=== PATIENT | female | born 1940 | race Caucasian/White ===

== ENCOUNTER → 2016-12-07 | Outpatient (CLI) | payer BC ==
[2016-12-07 12:20] LABS: BASO % 0.6 %; BASO ABS # 0.05 K/uL (0-0.2); COMPLETE YES; EOS % 4.2 %; HEMATOCRIT 37.1 % (37-47); IG% 0.1 %; LYMPH % 34.5 %; LYMPH ABS # 3.07 K/uL (1.2-3.4); MEAN CELL VOLUME 83.7 fL (80-100); MEAN CORPUSCULAR HEMOGLOBIN 27.1 pg (25-34); MEAN CORPUSCULAR HGB CONC 32.3 g/dl (32-36); MONO % 8.4 %; NEUT % 52.2 %; PLATELET COUNT 407 K/uL (130-400); RED BLOOD COUNT 4.43 M/uL (4.2-5.4); WHITE BLOOD COUNT 8.89 K/uL (4.8-10.8)
[2016-12-07 12:48] LABS: ALT/SGPT 22 U/L (12-78); AST/SGOT 15 U/L (15-37); BLOOD UREA NITROGEN 18 mg/dl (7-18); BUN/CREATININE RATIO 20.4 (10-20); CALCIUM 8.8 mg/dl (8.5-10.1); CARBON DIOXIDE 30 mmol/L (21-32); CHLORIDE 104 mmol/L (98-107); CHOLESTEROL 186 mg/dl (0-200); CREATININE 0.89 mg/dl (0.60-1.20); GLUCOSE 114 mg/dl (70-99); POTASSIUM 3.9 mmol/L (3.5-5.1); SODIUM 140 mmol/L (136-145)
[2016-12-07 12:59] LABS: ALB/GLOB RATIO 1.1 (0.9-2); ALKALINE PHOSPHATASE 109 U/L (45-117); CHOLESTEROL/HDL RATIO 2.5; HDL CHOLESTEROL 74 mg/dl; LDL CHOLESTEROL CALCULATED 77 mg/dl; TRIGLYCERIDES 175 mg/dl (0-150); VERY LOW DENSITY LIPOPROT CALC 35 mg/dl
[2016-12-07 13:01] LABS: ESTIMATED AVERAGE GLUCOSE 126 mg/dl; HA1C FLAG Normal (Normal)
== END | disposition home or self-care (01) ==
LOC: C.LABPVFM 08:33
PROVIDERS: ATTEND Family Medicine
DX: F32.9 Major depressive disorder, single episode, unspecified (principal); E78.5 Hyperlipidemia, unspecified; R60.9 Edema, unspecified; R73.9 Hyperglycemia, unspecified

== ENCOUNTER → 2016-12-10 | Outpatient (CLI) | payer BC ==
--- NOTE | 2016-12-14 13:57 | CODING QUERY MEDICAL NECESSITY ---
SUPPORTING DIAGNOSIS NEEDED A supporting diagnosis is required for the test/procedure performed on this patient in order for us to be reimbursed by the patient's insurance. Please provide a supporting diagnosis for the following test/procedure listed below next to the test name along with your signature. *If there is no additional diagnosis for this patient that would support the following test/procedure please document that below next to the test/procedure. Test(s)/Procedure(s) that require a supporting diagnosis: * VITAMIN D 25-HYDROXY DIAGNOSIS: * DOS: 12/10/16 Provider Signature: Date: Thank you Sulema To [facility] Information Management Once completed, please kindly fax back to [phone] For questions please call [phone]
== END | disposition home or self-care (01) ==
LOC: C.LABPVFM 11:21
PROVIDERS: ATTEND Nurse Practitioner
DX: G62.9 Polyneuropathy, unspecified (principal); E55.9 Vitamin D deficiency, unspecified

== ENCOUNTER → 2017-02-01 | Outpatient (CLI) | payer BC ==
--- NOTE | 2017-02-02 07:56 | MAMMOGRAPHY REPORT ---
BILATERAL DIGITAL DIAGNOSTIC MAMMOGRAM TOMOSYNTHESIS WITH CAD: 02/01/2017 CLINICAL HISTORY: Close follow-up of clusters of microcalcifications within the left breast. Also a nnual bilateral screening mammogram. TECHNIQUE: Bilateral CC and MLO 2-D digital and tomosynthesis images, spot magnification left CC an d ML views were obtained. Current study was also evaluated with a Computer Aided Detection (CAD) sy stem. COMPARISON: Comparison is made to exams dated: 08/03/2016 mammogram, 01/29/2016 ultrasound, 6 mammogram, 01/20/2016 mammogram, 01/16/2015 mammogram, and 01/12/2014 mammogram - [facility]. BREAST COMPOSITION: The tissue of both breasts is heterogeneously dense, which may obscure small ma sses. FINDINGS: The breast parenchymal pattern is similar to prior mammograms. There are benign rim calci fications scattered bilaterally. No obvious new mass, focal area of architectural distortion or new microcalcifications are identified. Spot magnification views of the left breast demonstrate approx imately 4 clusters of microcalcifications in both the medial and lateral aspect of the breast. Thes e clusters of microcalcifications are unchanged dating back to the 01/29/2016 mammograms. They also appear similar on prior full-field views dating back to 01/10/2013 and are most likely benign. The clusters of microcalcifications in the medial posterior left breast, best seen on the CC view are i ncreasingly conspicuous compared to the 2013 exam. Therefore, another 12 month follow-up diagnostic mammogram including left spot magnification views is recommended to ensure longer stability. IMPRESSION: ACR-BI-RADS CATEGORY 3: PROBABLY BENIGN Stable bilateral mammograms, including multiple clusters of microcalcifications within the medial an d lateral left breast. Another 12 month follow-up diagnostic mammogram including spot magnification views to reassess the microcalcifications is recommended. Annual right mammography will be due at that time. These results and recommendations were discussed with the patient at the time of the exam. Approximately 10% of breast cancers are not detected with mammography. A negative mammographic repor t should not delay biopsy if a clinically suggestive mass is present. Divine Mireles M.D. ay/:02/01/2017 16:05:35 Freight Loading Supervisor: Cathy WETZEL(Tata)(Maite), [facility] letter sent: Follow Up Recommended 3 BI-RADS Code: ACR-BI-RADS Category 3: Probably Benign
== END | disposition home or self-care (01) ==
LOC: C.MAMM 09:05
PROVIDERS: ATTEND Nurse Practitioner
DX: R92.0 Mammographic microcalcification found on diagnostic imaging of breast (principal)

== ENCOUNTER 2025-04-24 09:47 | Observation (INO) ==
[2025-04-24] MEDS: OPTIRAY 320 125ml IV ONE (10:16)
--- NOTE | 2025-04-24 10:23 | CT Scan Report ---
CT head/brain wo con CLINICAL HISTORY: 84 years-old Female with Neuro deficit, acute, stroke suspected. Acute strokelike symptoms TECHNIQUE: Multiple axial CT images of the head were obtained without contrast. A dose lowering tech nique was utilized adhering to the principles of ALARA. CT DOSE: 547.75 mGy.cm COMPARISON: CTA head of same day, head CT September 15, 2022 FINDINGS: No acute intracranial hemorrhage, midline shift, intracranial mass, hydrocephalus, territorial ischem ia or abnormal extra-axial collection. Involutional changes with white matter hypodensities suggestiv e of chronic microvascular ischemic disease. The calvarium is intact. The paranasal sinuses, mastoid air cells, and middle ear cavities are clear . IMPRESSION: No acute intracranial abnormality. ACT 112: Negative or not required by law. The above report was generated using voice recognition software. It may contain grammatical, syntax o r spelling errors. Electronically signed by: Paul Frank M.D. 04/24/2025 10:21 AM
--- NOTE | 2025-04-24 10:28 | CT Scan Report ---
CT angio neck with con CLINICAL HISTORY: 84 years-old Female with neuro deficit, acute stroke suspected. Acute stroke lik e symptoms COMPARISON STUDY: CTA head of same day TECHNIQUE: Following the IV administration of 120 mL of Optiray, CT angiogram of the neck was perform ed from the aortic arch to the skull base. Images are reviewed in the axial, sagittal, and coronal pl anes. 3-D MIPS images are created and assessed. IV contrast was administered without complication. Al l measurements were calculated based on NASCET criteria. A dose lowering technique was utilized adhe ring to the principles of ALARA. CT DOSE: 383.76 mGy.cm FINDINGS: Three-vessel morphology of the thoracic arch. The common carotid arteries are patent. There is atherosclerosis of the carotid bulbs with patent internal carotid arteries. Patent and codominant vertebral arteries. No aneurysm, dissection, high-grade stenosis or arterial occlusion. Patent basil ar artery. Lung apices are clear. No pneumothorax. Unremarkable soft tissues. Degenerative changes of the cervic al spine. No acute fracture. IMPRESSION:Unremarkable CTA of the neck. ACT 112: Negative or not required by law. The above report was generated using voice recognition software. It may contain grammatical, syntax o r spelling errors. Electronically signed by: Paul Frank M.D. 04/24/2025 10:26 AM
--- NOTE | 2025-04-24 10:30 | CT Scan Report ---
CT angio head w con CLINICAL HISTORY: neuro deficit, acute stroke suspected. TECHNIQUE: Unenhanced axial CT scan of the brain is performed. Subsequently, following the IV adminis tration of 120 cc of Optiray, CT angiogram of the brain was performed from the skull base to the vert ex. Images are reviewed in the axial, sagittal, and coronal planes. 3-D MIPS images are created and a ssessed. IV contrast was administered without complication. All measurements were obtained according to NASCET criteria. A dose lowering technique was utilized adhering to the principles of ALARA. CT DOSE: 384 COMPARISON STUDY: 09/15/2022 FINDINGS: Distal internal carotid and vertebral arteries show no significant narrowing or occlusion. Basilar artery is widely patent. Anterior, middle, and posterior cerebral arteries are patent bilater ally. Cerebral venous sinuses opacify normally. No intracranial aneurysm seen. IMPRESSION: No significant arterial narrowing or occlusion seen at the brain. ACT 112: Negative or not required by law. The above report was generated using voice recognition software. It may contain grammatical, syntax o r spelling errors. Electronically signed by: Linden Marrero M.D. 04/24/2025 10:29 AM
[2025-04-24 10:50] LABS: Hematocrit (blood only) 36.2 % (37.0-47.0); Hemoglobin 12.1 g/dl (12.0-16.0); Mean Corpuscular Hemoglobin 30.9 pg (25.0-34.0); Mean Corpuscular Volume 92.3 fL (80.0-100.0); Platelet Count 257 K/uL (130-400); RDW Standard Deviation 45.1 fL (36.4-46.3); Red Blood Count 3.92 M/uL (4.20-5.40); White Blood Count 4.75 K/ul (4.8-10.8)
--- NOTE | 2025-04-24 10:52 | Emergency Department Note ---
History of Present Illness General Chief complaint: Stroke/CVA Symptoms Stated complaint: LEFT SIDE NUMB, FALL LAST WEEK-HIT HEAD TWICE Time Seen by Provider: 04/24/25 10:07 Source: patient and family History of Present Illness Maximum Pain Intensity: 0 Patient is an 84-year-old female who presents with left arm and facial numbness that started around 830 this morning. She states "it just feels different on the left side". LLE weakness reported. Denies any visual changes or speech changes. She did state that she had trouble lifting her leg out of the car this morning. Family does report that she fell last Wednesday and struck her head. She does have some bruising to the scalp and around the left eye. She took 81mg of Aspirin earlier today. Home Medications Medication Instructions Recorded Confirmed Type vit C 250 mg-vit E 90 mg-zinc 40 1 tab PO BID 05/26/18 12/12/24 History mg-copper 1 [id number] capsule (PreserVision AREDS-2) timolol 0.25 % eye drops 1 drp ophthalmic (eye) DAILY #5 mL 05/13/21 12/12/24 Rx aspirin 81 mg tablet,delayed 81 mg PO DAILY 09/15/22 12/12/24 History release diphenhydramine 25 1 tab PO .COMPLEX 04/13/23 12/12/24 History mg-acetaminophen 500 mg tablet (Tylenol PM Extra Strength) venlafaxine 75 mg capsule,extended 75 mg PO DAILY #100 caps 03/27/24 12/12/24 Rx release 24 hr clonidine HCl 0.1 mg tablet 0.1 mg PO DAILY #100 tabs 05/01/24 12/12/24 Rx pantoprazole 40 mg tablet,delayed 40 mg PO DAILY #90 tabs 05/17/24 12/12/24 Rx release spironolactone 25 1 tab PO QAM #90 tabs 06/16/24 12/12/24 Rx mg-hydrochlorothiazide 25 mg tablet simvastatin 20 mg tablet 20 mg PO QAM #90 tabs 11/14/24 12/12/24 Rx cholecalciferol (vitamin D3) 25 25 mcg PO DAILY 12/12/24 12/12/24 History mcg (1,000 unit) capsule ipratropium bromide 21 mcg (0.03 2 spray intranasal BID #30 mL 12/15/24 Rx %) nasal spray Allergies Allergy/AdvReac Type Severity Reaction Status Date / Time No Known Allergies Allergy Verified 12/12/24 12:55 Past Med/Surg History Problem List (Updated 04/24/25 @ 11:25 by Wenceslao Portillo MD) Transient cerebral ischemia (Acute) Long-term current use of proton pump inhibitor therapy Pre-diabetes Chronic reflux esophagitis (Chronic) Depression (Chronic) Dyslipidemia (Chronic) Edema extremities (Chronic) Menopausal symptoms (Chronic) SCC (squamous cell carcinoma) (Chronic) Vitamin D deficiency (Chronic) Medical History Neck pain Fall History of anesthesia reaction GERD (gastroesophageal reflux disease) Migraine Hyperlipidemia Surgical History H/O hemorrhoidectomy History of total abdominal hysterectomy and bilateral salpingo-oophorectomy History of colonoscopy History of cholecystectomy History of tooth extraction H/O bilateral cataract extraction Family History Aunt Breast cancer Sister Myocardial infarction Father Cancer Heart disease Denies family history of Ovarian cancer Colorectal cancer Social History Smoking Status: Never smoker Second Hand Exposure: Yes (, FATHER SMOKED); Do You Dip or Chew Tobacco: No; Hx Alcohol Use: Yes Alcohol type: wine Alcohol Intake Frequency: Monthly or Less Hx Substance Use: No Preferred Language: Czech Communication Ability: Effective Visual Impairment: Limited Hearing Ability: Normal Sand Control Worker Required: No Beliefs That Will Affect Care: None marital status: / Current Living Situation: Alone current occupational status: retired How many Children do You have: 2 Feels Safe at Home: Yes Childhood Exposure to Second-Hand Smoke: Yes Diet: regular caffeine: Yes during the past year weight has: remained stable Dental Care, Regularly: Yes Physical Activity Frequency: Does not Exercise Seatbelt Use: never Sunscreen Use: Yes Do you think of yourself as: straight/heterosexual Sexual Activity: has been sexually active, but not for at least 12 months Gender Identity: Female Assistive Devices: Denture - Lower and Glasses Review of Systems Review of systems negative outside of positive findings mentioned in HPI. Physical Exam Vital Signs Vital Signs - 24 hr 04/24/25 09:53 04/24/25 10:22 04/24/25 10:34 Temperature 36.5 C Temperature Source Oral Pulse Rate 76 85 86 Pulse Rate [Apical] Respiratory Rate 20 18 Respiratory Effort / Characteristics Non-Labored Spontaneous Respiratory Depth Normal Respiratory Pattern Regular Blood Pressure 128/76 166/86 H Blood Pressure [Right Arm] Blood Pressure Mean 93 107 Blood Pressure Mean [Right Arm] Pulse Oximetry 98 100 Oxygen Delivery Method Room Air Sepsis Recent Fever Within 48 Hours No Sepsis New/Unexplained Change in Mental Status N/A Sepsis Action Taken by Nursing No Action Required 04/24/25 10:48 04/24/25 10:50 04/24/25 11:00 Temperature Temperature Source Pulse Rate 75 Pulse Rate [Apical] 68 Respiratory Rate 19 16 Respiratory Effort / Characteristics Non-Labored Spontaneous Respiratory Depth Respiratory Pattern Blood Pressure 160/82 H Blood Pressure [Right Arm] 154/76 H Blood Pressure Mean 108 Blood Pressure Mean [Right Arm] 102 Pulse Oximetry 98 98 96 Oxygen Delivery Method Room Air Room Air Sepsis Recent Fever Within 48 Hours Sepsis New/Unexplained Change in Mental Status Sepsis Action Taken by Nursing 04/24/25 11:08 Temperature Temperature Source Pulse Rate Pulse Rate [Apical] 68 Respiratory Rate 16 Respiratory Effort / Characteristics Non-Labored Spontaneous Respiratory Depth Respiratory Pattern Blood Pressure Blood Pressure [Right Arm] 154/76 H Blood Pressure Mean Blood Pressure Mean [Right Arm] 102 Pulse Oximetry 96 Oxygen Delivery Method Room Air Sepsis Recent Fever Within 48 Hours Sepsis New/Unexplained Change in Mental Status Sepsis Action Taken by Nursing See below. Constitutional WD/WN, vitals as above Eyes PERRL, conjunctivae normal, anicteric sclerae Respiratory normal respiratory effort, lungs clear to auscultation Cardiovascular RRR, no murmur, no edema Gastrointestinal (Abdomen) normal bowel sounds, soft, nontender, no hepatosplenomegaly Musculoskeletal no cyanosis or clubbing, extremities motor strength 5/5 Neurologic Cranial nerves II through XII are intact, no visual field deficits noted on compositional testing, 5 out of 5 strength in the upper and lower extremities, no dysmetria noted in all 4 limbs, normal speech, light touch sensation deficit noted in LUE and left side of face, NIHSS of 1 Course Administered Medications Discontinued Medications Aspirin (Aspirin Chew 324 Mg) 324 mg PO NOW STA Stop: 04/24/25 10:41 Last Admin: 04/24/25 10:56 Dose: 243 mg Documented By: JONATHAN Clopidogrel Bisulfate (Clopidogrel Bisulfate 300 Mg Tab) 300 mg PO NOW STA Stop: 04/24/25 10:41 Last Admin: 04/24/25 10:56 Dose: 300 mg Documented By: JONATHAN Ioversol (Optiray 320 125ml) 120 ml IV ONCE ONE Stop: 04/24/25 10:16 Last Admin: 04/24/25 10:16 Dose: 120 ml Documented By: MONA Medical Decision Making Differential Diagnosis TIA, CVA, SAH, SDH, atypical migraine Medical Records Attestation: I reviewed the patient's medical records. Home Medications Current Medication List: was personally reviewed by me Laboratory Data Attestation: I reviewed the patient's lab results. 04/24/25 10:22 04/24/25 10:22 Lab Results 04/24/25 04/24/25 Range/Units 10:22 10:33 WBC 4.75 L (4.8-10.8) K/ul RBC 3.92 L (4.20-5.40) M/uL Hgb 12.1 (12.0-16.0) g/dl POC Hgb 11.9 L (12.0-16.0) g/dl Hct 36.2 L (37.0-47.0) % POC Hct 35 L (37-47) % MCV 92.3 (80.0-100.0) fL MCH 30.9 (25.0-34.0) pg MCHC 33.4 (32.0-36.0) g/dL RDW Std Deviation 45.1 (36.4-46.3) fL RDW Coeff of Mallory 13.3 (11.5-14.5) % Plt Count 257 (130-400) K/uL MPV 9.5 (9.4-12.4) fL PT 10.7 (9.0-12.0) Seconds INR 1.0 (0.9-1.1) APTT 28 (21-31) Seconds PTT Ratio 1.0 POC Sodium 135 (135-144) mmol/L Sodium 134 L (136-145) mmol/L POC Potassium 3.6 (3.3-5.0) mmol/L Potassium 3.6 (3.5-5.1) mmol/L POC Chloride 97 L (101-112) mmol/L Chloride 99 (98-107) mmol/L Carbon Dioxide 29 (21-32) mmol/L POC Total CO2 26 (24-31) mmol/L Anion Gap 6 (3-11) POC Anion Gap 17.0 (16-25) mmol/L POC BUN 17 (7-18) mg/dl BUN 17 (6-23) mg/dl Creatinine 0.60 (0.6-1.2) mg/dl POC Creatinine 0.7 (0.6-1.3) mg/dl Est Cr Clr Drug Dosing Not Reportable eGFR 87.91 BUN/Creatinine Ratio 28.3 H (10-20) Glucose 139 H (70-99(Fasting)) mg/dl POC Glucose (other) 130 H (70-99) mg/dl Calcium 8.5 L (8.6-10.3) mg/dl POC Ioniz Calcium Fabiana 1.10 L (1.12-1.32) mmol/l Magnesium 1.6 L (1.7-2.4) mg/dl Total Bilirubin 0.4 (0.2-1.0) mg/dl AST 15 (13-39) U/L ALT 11 (7-52) U/L Alkaline Phosphatase 87 (34-104) U/L Troponin I High Sens 4.0 (0-14) pg/ml Total Protein 5.7 L (6.0-8.3) gm/dl Albumin 3.3 L (3.4-5.0) gm/dl Globulin 2.4 L (2.5-4.0) gm/dl Albumin/Globulin Ratio 1.4 (0.9-2) Blood Type O Negative Antibody Screen NEGATIVE Imaging Data Radiologist's Impression: Head CT 04/24/25 10:06 CT head/brain wo con CLINICAL HISTORY: 84 years-old Female with Neuro deficit, acute, stroke suspected. Acute strokelike symptoms TECHNIQUE: Multiple axial CT images of the head were obtained without contrast. A dose lowering technique was utilized adhering to the principles of ALARA. CT DOSE: 547.75 mGy.cm COMPARISON: CTA head of same day, head CT September 15, 2022 FINDINGS: No acute intracranial hemorrhage, midline shift, intracranial mass, hydrocephalus, territorial ischemia or abnormal extra-axial collection. Involutional changes with white matter hypodensities suggestive of chronic microvascular ischemic disease. The calvarium is intact. The paranasal sinuses, mastoid air cells, and middle ear cavities are clear. IMPRESSION: No acute intracranial abnormality. ACT 112: Negative or not required by law. The above report was generated using voice recognition software. It may contain grammatical, syntax or spelling errors. Electronically signed by: Paul Frank M.D. 04/24/2025 10:21 AM Head CTA 04/24/25 10:08 CT angio head w con CLINICAL HISTORY: neuro deficit, acute stroke suspected. TECHNIQUE: Unenhanced axial CT scan of the brain is performed. Subsequently, following the IV administration of 120 cc of Optiray, CT angiogram of the brain was performed from the skull base to the vertex. Images are reviewed in the axial, sagittal, and coronal planes. 3-D MIPS images are created and assessed. IV contrast was administered without complication. All measurements were obtained according to NASCET criteria. A dose lowering technique was utilized adhering to the principles of ALARA. CT DOSE: 384 COMPARISON STUDY: 09/15/2022 FINDINGS: Distal internal carotid and vertebral arteries show no significant narrowing or occlusion. Basilar artery is widely patent. Anterior, middle, and posterior cerebral arteries are patent bilaterally. Cerebral venous sinuses opacify normally. No intracranial aneurysm seen. IMPRESSION: No significant arterial narrowing or occlusion seen at the brain. ACT 112: Negative or not required by law. The above report was generated using voice recognition software. It may contain grammatical, syntax or spelling errors. Electronically signed by: Linden Marrero M.D. 04/24/2025 10:29 AM Neck CTA 04/24/25 10:08 CT angio neck with con CLINICAL HISTORY: 84 years-old Female with neuro deficit, acute stroke suspected. Acute stroke like symptoms COMPARISON STUDY: CTA head of same day TECHNIQUE: Following the IV administration of 120 mL of Optiray, CT angiogram of the neck was performed from the aortic arch to the skull base. Images are reviewed in the axial, sagittal, and coronal planes. 3-D MIPS images are created and assessed. IV contrast was administered without complication. All measurements were calculated based on NASCET criteria. A dose lowering technique was utilized adhering to the principles of ALARA. CT DOSE: 383.76 mGy.cm FINDINGS: Three-vessel morphology of the thoracic arch. The common carotid arteries are patent. There is atherosclerosis of the carotid bulbs with patent internal carotid arteries. Patent and codominant vertebral arteries. No aneurysm, dissection, high-grade stenosis or arterial occlusion. Patent basilar artery. Lung apices are clear. No pneumothorax. Unremarkable soft tissues. Degenerative changes of the cervical spine. No acute fracture. IMPRESSION:Unremarkable CTA of the neck. ACT 112: Negative or not required by law. The above report was generated using voice recognition software. It may contain grammatical, syntax or spelling errors. Electronically signed by: Paul Frank M.D. 04/24/2025 10:26 AM ECG Data Attestation: I personally reviewed and interpreted this ECG as follows: Indication: + weakness Rate (beats per minute): 71 Rhythm: + normal sinus ECG Intervals/blocks: + Normal QRS, + Normal QT and + Normal VT ECG [place]: + Normal ECG ST segments: + Normal ST segments Comparison ECG Date: from (09/15/2022) Change: no significant change Blood Pressure Blood Pressure Findings: Elevated blood pressure MDM Narrative Patient is an 84-year-old female presents as a stroke alert. Complains of left- sided numbness that started around 830 this morning. Initially went to CT prior to my evaluation. My evaluation patient does have some subjective numbness on the left upper extremity and left face. Overall NIH stroke scale of 1. I discussed the case with Dr. Bey with teleneurology who states that because of the improving non-debilitating symptoms there is no indication for thrombolytics at this time. No LVO noted on CTA. She recommends admission for stroke workup including MRI, echocardiogram as well as dual antiplatelet therapy. I did recommend the aspirin and Plavix here in the ED. Permissive hypertension recommended as well. Will admit to hospitalist service for CVA workup. Impression & Plan Transient cerebral ischemia Discharge Plan Visit Data Chief Complaint: Stroke/CVA Symptoms Stated Complaint: LEFT SIDE NUMB, FALL LAST WEEK-HIT HEAD TWICE ED Provider: Wenceslao Portillo Discharge Problem: Transient cerebral ischemia Patient Disposition: Admitted As Inpatient Condition: Good Forms Stand Alone Forms: My [employer] Prescriptions Prescriptions: No Action timolol 0.25 % drops 1 drp ophthalmic (eye) DAILY Qty: 5 2RF venlafaxine 75 mg capsule,extended release 24hr 75 mg PO DAILY Qty: 100 3RF clonidine HCl 0.1 mg tablet 0.1 mg PO DAILY Qty: 100 3RF pantoprazole 40 mg tablet,delayed release (DR/EC) 40 mg PO DAILY Qty: 90 3RF spironolacton-hydrochlorothiaz 25-25 mg tablet 1 tab PO QAM Qty: 90 3RF simvastatin 20 mg tablet 20 mg PO QAM Qty: 90 3RF ipratropium bromide 21 mcg (0.03 %) spray,non-aerosol 2 spray intranasal BID Qty: 30 3RF Rx Instructions: administer into each nostril diphenhydramine-acetaminophen [Tylenol PM Extra Strength] 25-500 mg tablet 1 tab PO .COMPLEX Rx Instructions: 1 tab orally Before Bedtime; cholecalciferol (vitamin D3) 25 mcg (1,000 unit) capsule 25 mcg PO DAILY PreserVision AREDS-2 [id number] Capsule 1 tab PO BID aspirin [Aspirin Low-Strength] 81 mg Tablet,Delayed Release (Dr/Ec) 81 mg PO DAILY Referrals Referrals: Kaitlynn Martinez CRNP [Primary Care Provider] -
[2025-04-24] MEDS: CLOPIDOGREL BISULFATE 300 MG TAB PO STA (10:56)
[2025-04-24] MEDS: ASPIRIN CHEW 324 MG PO STA (10:56)
[2025-04-24 11:03] LABS: Alanine Aminotransferase 11 U/L (7-52); Albumin Globulin Ratio 1.4 (0.9-2); Alkaline Phosphatase 87 U/L (34-104); Anion Gap 6 (3-11); Bilirubin,Total 0.4 mg/dl (0.2-1.0); Blood Urea Nitrogen 17 mg/dl (6-23); Calcium 8.5 mg/dl (8.6-10.3); Carbon Dioxide 29 mmol/L (21-32); Chloride 99 mmol/L (98-107); Globulin 2.4 gm/dl (2.5-4.0); Glucose 139 mg/dl (70-99(Fasting)); Magnesium 1.6 mg/dl (1.7-2.4); Potassium 3.6 mmol/L (3.5-5.1); Sodium 134 mmol/L (136-145); Total Protein 5.7 gm/dl (6.0-8.3)
[2025-04-24 11:12] LABS: INR 1.0 (0.9-1.1); Partial Thromboplastin Time 28 Seconds (21-31); Prothrombin Time 10.7 Seconds (9.0-12.0)
--- NOTE | 2025-04-24 11:24 | XRay Report ---
XR chest 1V portable CLINICAL HISTORY: stroke alert COMPARISON STUDY: 05/26/2024 FINDINGS: Heart size and pulmonary vasculature are normal. No consolidation or pleural effusion. No p neumothorax. IMPRESSION: No acute findings. ACT 112: Negative or not required by law. Electronically signed by: Linden Marrero M.D. 04/24/2025 11:23 AM
--- NOTE | 2025-04-24 12:09 | History & Physical Report ---
Date of Service April 24, 2025 Assessment & Plan (1) Stroke-like symptoms: Plan 84 year old female presents to the ER with left sided numbness (face, arm and legs). On admission just having facial numbness. #Stroke-like symptoms Interestingly she has had intermittent left sided numbness perhaps once a month since the which was put down to possible nerve entrapment but never had MRI confirmation which hasn't changed in severity or frequency during that time. However, these episodes have never effected her face and were not as pronounced as her current episode. She also used to have migraine headaches up until she retired. Possible prior and current episodes are complex migraines without the headache with her current episode worse due to recent head trauma. Treated as TIA/CVA in the ER on advice of telestroke neurology. Given concern for TIA from telestroke and recommendation to add clopidogrel will consult neurology here to clarify complex migraine vs. TIA (she is known to Dr Costa from many years ago). Will complete TIA workup per telestroke recommendation with TTE, A1C, lipid panel, TSH and B12. #Hypertension Given mostly resolved symptoms I don't see a need for permissive hypertension and will continue her usual anti-hypertensives with spironolactone/HCTZ and clonidine. #Insomnia Discussed reducing use of diphenhydramine for "sleep" aid given significant risk factors of fpc use, will continue during her hospitalization #GERD Continue pantoprazole VTE Prophylaxis - low risk, encourage ambulation Disposition - observation to PCU Admission and Anticipated Discharge Date Admission Date: April 24, 2025 History of Present Illness Chief Complaint: Stroke-like symptoms Primary Care Provider: TOMMY Garcia Marylu Baron is an 84 year old female presents to the ER with left sided numbness in face, arm and leg. She woke up this morning without any symptoms but started at 8:30am. Over hours the numbness has been improving and she currently only feels numbness in her face. Some reports of her left leg being weak trying to get out of the car but she reports no real weakness it was just her leg felt heavy and odd but she had full power. No vision, speech or hearing changes. No facial droop noticed by her daughter. She has a recent history of head trauma last Wednesday when a 2x4 hit her on the back left of the head. Then on Wednesday she tripped over a cord and hit the front right of her head on the door frame and fell to her knees. She denies any confusion, vision changes, difficulty concentrating or headache from these events. She has a history of intermittent left arm and leg numbness since the which was put down to a trapped nerve although has not become more intense or frequent during that time and no pain or weakness associated with it. These episodes occur approximately once a month. These episodes are not associated with headaches. She also has a history of migraines but these stopped when she retired. Allergies Allergy/AdvReac Type Severity Reaction Status Date / Time No Known Allergies Allergy Verified 04/24/25 12:13 Home Medications Medication Instructions Recorded Confirmed Type vit C 250 mg-vit E 90 mg-zinc 40 1 tab PO BID 05/26/18 04/24/25 History mg-copper 1 [id number] capsule (PreserVision AREDS-2) aspirin 81 mg tablet,delayed 81 mg PO QAM 09/15/22 04/24/25 History release diphenhydramine 25 1 tab PO HS 04/13/23 04/24/25 History mg-acetaminophen 500 mg tablet (Tylenol PM Extra Strength) venlafaxine 75 mg capsule,extended 75 mg PO DAILY #100 caps 03/27/24 04/24/25 Rx release 24 hr pantoprazole 40 mg tablet,delayed 40 mg PO DAILY #90 tabs 05/17/24 04/24/25 Rx release spironolactone 25 1 tab PO QAM #90 tabs 06/16/24 04/24/25 Rx mg-hydrochlorothiazide 25 mg tablet simvastatin 20 mg tablet 20 mg PO QAM #90 tabs 11/14/24 04/24/25 Rx cholecalciferol (vitamin D3) 25 25 mcg PO QAM 12/12/24 04/24/25 History mcg (1,000 unit) capsule ipratropium bromide 21 mcg (0.03 2 spray intranasal BID #30 mL 12/15/24 04/24/25 Rx %) nasal spray clonidine HCl 0.1 mg tablet 0.1 mg PO QAM 04/24/25 04/24/25 History fluorometholone 0.1 % eye 1 drp OPR QAM 04/24/25 04/24/25 History drops,suspension timolol maleate 0.25 % eye drops 1 drp OPR QAM 04/24/25 04/24/25 History Past Med/Surg History Problem List (Updated 04/24/25 @ 17:56 by Francis Love MD) Stroke-like symptoms Transient cerebral ischemia (Acute) Long-term current use of proton pump inhibitor therapy Pre-diabetes Chronic reflux esophagitis (Chronic) Depression (Chronic) Dyslipidemia (Chronic) Edema extremities (Chronic) Menopausal symptoms (Chronic) SCC (squamous cell carcinoma) (Chronic) Vitamin D deficiency (Chronic) Medical History Neck pain Fall History of anesthesia reaction GERD (gastroesophageal reflux disease) Migraine Hyperlipidemia Surgical History H/O hemorrhoidectomy History of total abdominal hysterectomy and bilateral salpingo-oophorectomy History of colonoscopy History of cholecystectomy History of tooth extraction H/O bilateral cataract extraction Family History Aunt Breast cancer Sister Myocardial infarction Father Cancer Heart disease Denies family history of Ovarian cancer Colorectal cancer Social History Smoking Status: Never smoker Second Hand Exposure: No; Do You Dip or Chew Tobacco: No; Tobacco Cessation Education Requested by Patient: No Hx Alcohol Use: Yes Alcohol type: wine and hard liquor Alcohol Intake Frequency: Monthly or Less Hx Substance Use: No Preferred Language: French Communication Ability: Effective Visual Impairment: Limited Hearing Ability: Normal Parish Visitor Required: No Beliefs That Will Affect Care: None marital status: / Current Living Situation: Alone current occupational status: retired How many Children do You have: 2 Other Information That Helps Us Care for You: No Feels Safe at Home: Yes Safety Concerns: Feels Safe At This Time Childhood Exposure to Second-Hand Smoke: Yes Diet: regular caffeine: Yes during the past year weight has: remained stable Dental Care, Regularly: Yes Physical Activity Frequency: Does not Exercise Seatbelt Use: never Sunscreen Use: Yes Do you think of yourself as: straight/heterosexual Sexual Activity: has been sexually active, but not for at least 12 months Gender Identity: Female Assistive Devices: Denture - Lower and Glasses Physical Exam Constitutional: WD/WN, vitals as above Respiratory: normal respiratory effort, lungs clear to auscultation Cardiovascular: RRR, no murmur, no edema Gastrointestinal (Abdomen): normal bowel sounds, soft, nontender, no hepatosplenomegaly Skin: no rashes, warm and dry Neurologic: moves all extremities and awake; no focal motor deficits and not confused Speech / Cognition: normal speech, no expressive aphasia and no receptive aphasia Motor/Sensory: + sensory deficit (left face (V1/2/3)); no tremor and no pronator drift Cranial Nerves: PERRL, EOM intact bilaterally, normal facial strength, tongue midline, able to rotate head bilaterally, able to elevate shoulders bilaterally, no nystagmus and symmetric palate elevation Coordination: normal [id number] test Results & Data Results & Data Vital Signs (Past 12 Hours) Vital Signs Temp Pulse Pulse Resp BP BP Pulse Ox 04/24/25 11:23 65 16 137/70 96 04/24/25 11:08 68 16 154/76 H 96 04/24/25 11:00 68 16 154/76 H 96 04/24/25 10:50 98 04/24/25 10:48 75 19 160/82 H 98 04/24/25 10:34 86 04/24/25 10:22 85 18 166/86 H 100 04/24/25 09:53 36.5 C 76 20 128/76 98 O2 Del Method 04/24/25 11:23 Room Air 04/24/25 11:08 Room Air 04/24/25 11:00 Room Air 04/24/25 10:50 Room Air 04/24/25 10:48 04/24/25 10:34 04/24/25 10:22 04/24/25 09:53 Room Air Laboratory Results Abnormal lab results 04/24/25 04/24/25 Range/Units 10:22 10:33 WBC 4.75 L (4.8-10.8) K/ul RBC 3.92 L (4.20-5.40) M/uL POC Hgb 11.9 L (12.0-16.0) g/dl Hct 36.2 L (37.0-47.0) % POC Hct 35 L (37-47) % Sodium 134 L (136-145) mmol/L POC Chloride 97 L (101-112) mmol/L BUN/Creatinine Ratio 28.3 H (10-20) Glucose 139 H (70-99(Fasting)) mg/dl POC Glucose (other) 130 H (70-99) mg/dl Calcium 8.5 L (8.6-10.3) mg/dl POC Ioniz Calcium Fabiana 1.10 L (1.12-1.32) mmol/l Magnesium 1.6 L (1.7-2.4) mg/dl Total Protein 5.7 L (6.0-8.3) gm/dl Albumin 3.3 L (3.4-5.0) gm/dl Globulin 2.4 L (2.5-4.0) gm/dl Diagnostic Findings XR chest 1V portable CLINICAL HISTORY: stroke alert COMPARISON STUDY: 05/26/2024 FINDINGS: Heart size and pulmonary vasculature are normal. No consolidation or pleural effusion. No pneumothorax. IMPRESSION: No acute findings. CT head/brain wo con CLINICAL HISTORY: 84 years-old Female with Neuro deficit, acute, stroke suspected. Acute strokelike symptoms TECHNIQUE: Multiple axial CT images of the head were obtained without contrast. A dose lowering technique was utilized adhering to the principles of ALARA. CT DOSE: 547.75 mGy.cm COMPARISON: CTA head of same day, head CT September 15, 2022 FINDINGS: No acute intracranial hemorrhage, midline shift, intracranial mass, hydrocephalus, territorial ischemia or abnormal extra-axial collection. Involutional changes with white matter hypodensities suggestive of chronic microvascular ischemic disease. The calvarium is intact. The paranasal sinuses, mastoid air cells, and middle ear cavities are clear. IMPRESSION: No acute intracranial abnormality. CT angio head w con CLINICAL HISTORY: neuro deficit, acute stroke suspected. TECHNIQUE: Unenhanced axial CT scan of the brain is performed. Subsequently, following the IV administration of 120 cc of Optiray, CT angiogram of the brain was performed from the skull base to the vertex. Images are reviewed in the axial, sagittal, and coronal planes. 3-D MIPS images are created and assessed. IV contrast was administered without complication. All measurements were obtained according to NASCET criteria. A dose lowering technique was utilized adhering to the principles of ALARA. CT DOSE: 384 COMPARISON STUDY: 09/15/2022 FINDINGS: Distal internal carotid and vertebral arteries show no significant narrowing or occlusion. Basilar artery is widely patent. Anterior, middle, and posterior cerebral arteries are patent bilaterally. Cerebral venous sinuses opacify normally. No intracranial aneurysm seen. IMPRESSION: No significant arterial narrowing or occlusion seen at the brain. CT angio neck with con CLINICAL HISTORY: 84 years-old Female with neuro deficit, acute stroke suspected. Acute stroke like symptoms COMPARISON STUDY: CTA head of same day TECHNIQUE: Following the IV administration of 120 mL of Optiray, CT angiogram of the neck was performed from the aortic arch to the skull base. Images are reviewed in the axial, sagittal, and coronal planes. 3-D MIPS images are created and assessed. IV contrast was administered without complication. All measurements were calculated based on NASCET criteria. A dose lowering technique was utilized adhering to the principles of ALARA. CT DOSE: 383.76 mGy.cm FINDINGS: Three-vessel morphology of the thoracic arch. The common carotid arteries are patent. There is atherosclerosis of the carotid bulbs with patent internal carotid arteries. Patent and codominant vertebral arteries. No aneurysm, dissection, high-grade stenosis or arterial occlusion. Patent basilar artery. Lung apices are clear. No pneumothorax. Unremarkable soft tissues. Degenerative changes of the cervical spine. No acute fracture. IMPRESSION:Unremarkable CTA of the neck. Medications Administered ER Medications Given: Aspirin 324mg PO Clopidogrel 300mg PO ECG Rate (beats per minute): 71 Rhythm: normal sinus Findings: no acute ischemic change Comparison ECG Date: from (Sep 15, 2022) Change: no significant change Code Status & VTE Plan Code Status Full VTE Prophylaxis Plan VTE Prophylaxis will be ordered: No PG Care Time/CCT Total # of Minutes Spent Total Time Spent with Patient: Total time spent is greater than 50% in coordination of care (as documented) at patient's floor/unit and/or counseling patient: Coding Level of Care Code 86424 INT INP/OBS CARE 3/75MIN Diagnoses Stroke-like symptoms R29.90
--- NOTE | 2025-04-24 16:06 | Electrocardiogram Report ---
Test Reason : Blood Pressure : */* mmHG Vent. Rate : 71 BPM Atrial Rate : 71 BPM P-R Int : 172 ms QRS Dur : 90 ms QT Int : 412 ms P-R-T Axes : 41 7 45 degrees QTcB Int : 447 ms Normal sinus rhythm Normal ECG When compared with ECG of 15-Sep-2022 15:06, No significant change was found Confirmed by Berny Gallagher ([id number]) on 04/24/2025 4:06:11 PM Referred By: REFERRED SELF Confirmed By: Berny Gallagher
[2025-04-24] MEDS ORDERED: PHARMACIST DISCHARGE MED REC CONSULT PRN (16:13)
[2025-04-24] MEDS: MAGNESIUM SULFATE / D5W 1 GM/100 ML BAG IV ONE (18:15)
[2025-04-24] MEDS ORDERED: diphenhydrAMINE Capsule 25 MG CAP PO PRN (18:19)
[2025-04-24 19:31] VITALS: TEMP 97.7
[2025-04-24] MEDS: ACETAMINOPHEN 500 MG TAB PO SCH (20:11)
[2025-04-24] MEDS: diphenhydrAMINE Capsule 25 MG CAP PO SCH (20:12)
[2025-04-24] MEDS: IPRATROPIUM BROMIDE NASAL SPRAY 0.03% 30 ML NAE SCH (20:12)
[2025-04-24] MEDS ORDERED: NON-FORMULARY MEDICATION (Diphenhydramine-Acetaminophen [Tylenol Pm Extra Strength] 25-500 PO SCH (21:00)
[2025-04-24] MEDS ORDERED: diphenhydrAMINE Capsule 25 MG CAP PO SCH (21:00)
[2025-04-25] MEDS: ASPIRIN 81 MG ECTAB PO SCH (08:33)
[2025-04-25] MEDS: CHOLECALCIFEROL 25 MCG (1000 UNITS) TAB PO SCH (08:34)
[2025-04-25] MEDS: TIMOLOL MALEATE 0.25% OP SOLN 5 ML BTL OPR SCH (08:35)
[2025-04-25] MEDS: VENLAFAXINE HCL XR 75 MG CAPXR PO SCH (08:36)
[2025-04-25] MEDS: SIMVASTATIN 20 MG TAB PO SCH (08:36)
--- NOTE | 2025-04-25 08:38 | Magnetic Resonance Report ---
EXAM: MR brain wo con CLINICAL HISTORY: Left sided numbness TECHNIQUE: MRI of the brain was performed without contrast with multiplanar sequences obtained. COMPARISON: No previous studies are available for comparison. FINDINGS: Brain Parenchyma: Small vessel ischemic changes in white matter of bilateral cerebral hemispheres showing punctate and nodular T2/FLAIR hyperintense foci. Age-appropriate involutional brain changes, with deepening of cortical sulci and prominence of the sylvian fissures. No evidence of diffusion restriction or hemorrhage. No mass lesions or focal cortical abnormalities identified. Ventricles and Sulci: Normal size and configuration of the lateral ventricles, third ventricle, and fourth ventricle. No evidence of hydrocephalus or ventriculomegaly. Posterior Fossa: Cerebellum and brainstem appear normal without evidence of mass lesions or signal abnormalities. Hypertrophied inferior nasal turbinate. Mild mucosal thickening of ethmoid air cells. Orbits and Skull Base: Orbits and skull base structures are normal without evidence of abnormalities. IMPRESSION: 1. No acute intracranial abnormality. 2. Age related involutional changes. 3. Small vessel ischemic changes in white matter of bilateral cerebral hemispheres. Electronically signed by Kade Figueroa 04-25-2025 08:37 AM
[2025-04-25] MEDS ORDERED: SPIRONOLACTONE/HCTZ 25-25 PO SCH (09:00)
[2025-04-25] MEDS: hydroCHLOROthiazide 25 MG TAB PO SCH (09:43)
[2025-04-25] MEDS: SPIRONOLACTONE 25 MG TAB PO SCH (09:43)
[2025-04-25 09:54] LABS: Hematocrit (blood only) 41.9 % (37.0-47.0); Hemoglobin 14.2 g/dl (12.0-16.0); Immature Granulocytes # (auto) 0.02 K/uL (0.01-0.20); Immature Granulocytes % (auto) 0.4 %; Mean Corpuscular Hemoglobin 30.9 pg (25.0-34.0); Mean Corpuscular Volume 91.3 fL (80.0-100.0); Platelet Count 258 K/uL (130-400); RDW Standard Deviation 44.7 fL (36.4-46.3); Red Blood Count 4.59 M/uL (4.20-5.40); White Blood Count 5.28 K/ul (4.8-10.8)
[2025-04-25 10:11] LABS: Anion Gap 8.0 (3-11); Blood Urea Nitrogen 13.0 mg/dl (6-23); Calcium 9.2 mg/dl (8.6-10.3); Carbon Dioxide 29.0 mmol/L (21-32); Chloride 101.0 mmol/L (98-107); Cholesterol 184.0 mg/dl (0-200); Creatinine Clr Calc Pharmacy 64.6 ml/min; Glucose 201.0 mg/dl (70-99(Fasting)); HDL Cholesterol 64.0 mg/dl; Hemoglobin A1C 6.0 % (4.5-5.6); Magnesium 1.8 mg/dl (1.7-2.4); Potassium 3.8 mmol/L (3.5-5.1); Sodium 138.0 mmol/L (136-145); Triglycerides 145.0 mg/dl (0-150)
[2025-04-25 10:26] LABS: Thyroid Stimulating Hormone 2.469 uIu/ml (0.300-4.500)
--- NOTE | 2025-04-25 10:49 | Neurology Consultation ---
Date of Consultation April 25, 2025 Assessment & Plan (1) TIA (transient ischemic attack): (2) Numbness and tingling of left arm and leg: Plan Patient had an episode of numbness and tingling left face arm and leg lasting for 6 to 9 hours April 24. Neurologic examination is unremarkable with no focal findings, meningeal signs, or encephalopathy. Patient had some minor closed head trauma with some bruising around the right orbit without loss of consciousness or concussive symptoms. MRI of the brain showed no acute stroke or other findings. She had minimal changes consistent with age. CT angiography showed no vascular issues. She had this event despite aspirin. Recommendations: 1. Consider switching aspirin to 75 mg clopidogrel. 2. Increase activity as able. 3. Continue simvastatin. Technically she is a high dose statin candidate but I am concerned regarding her relatively advanced age. Suggest increase to 40 mg each morning. 4. Otherwise, I have no further neurologic testing or treatment recommendations to make at this time. Please contact me if I can be of further assistance. Overall, I spent a total of 60 minutes with this case including review of records, review of MRI films, direct evaluation of the patient at bedside, report generation, and discussion of the case with the patient and son-in-law at bedside, RN, and Dr. Coto including differential diagnosis options. History of Present Illness Reason for Consultation: Patient is an 84-year-old, who was asked to see at the request of Dr. Love, for neurologic evaluation regarding strokelike symptoms. Requesting Physician: Dr. Love Attending Physician: Prabhjot Coto MD History of Present Illness I last saw this patient in September 1999 after being admitted for left-sided numbness and headache. MRI of the brain showed no acute lesion and she was noted to have hypertension as well. A complicated migraine was the final diagnosis. I lost her to follow-up. She states that her migraine headaches have faded away and she does not get them anymore. She has no hypertension, diabetes, heart disease or other strokelike symptoms. She has been taking clopidogrel 75 mg a day for many years which 5 years ago she was switched from clopidogrel to 81 mg aspirin, which she has remained on today. The patient had a 2 x 4 fall and hit the back of her head last week. 1 day later she tripped and her right face and orbit landed into a door jam. She had no loss of consciousness but has had bruising and soreness since. She does not have any headaches. Patient was in her usual state of health when she went to bed feeling well on April 23. She arose at 0730 on April 24 feeling quite well again. By 829 she was sitting at the table and had the sudden onset of left face arm and leg numbness. It was the entire limb diffusely and she had no headache or pain. There was no speech problem, vision issue, balance problem or significant weakness. She may have had some slight weakness but she is uncertain. She sat for a while thinking it might go away but it did not. She arrived to the emergency room April 24 at 0953 with a temperature of 36.5, pulse 76 and regular, respiratory 20, blood pressure 128/76 and desaturation 98% Neurologic examination was remarkable for some slight numbness of the left arm and face with an NIH stroke scale of 1. She had no weakness or other focal neurologic findings. There was old bruising under the right orbit. CHEM profile and CBC were unremarkable. Glucose was 139. She was given 300 mg of clopidogrel. By the evening of April 24 all of the numbness gradually faded away. She has been asymptomatic since. CT scan of the head was unremarkable. CT angiography of the head and neck was unremarkable with no vascular stenoses or anomalies. MRI of the brain showed no acute stroke. There was mild old small vessel ischemic disease and atrophy only. I reviewed these films. This morning blood pressure is 133/85, triglycerides 145 total cholesterol 184 and LDL 91. CBC and CHEM profile were unremarkable. She is in normal sinus rhythm in the 60s. She feels asymptomatic and back to baseline. Allergies Allergy/AdvReac Type Severity Reaction Status Date / Time No Known Allergies Allergy Verified 04/24/25 12:13 Home Medications Medication Instructions Recorded Confirmed Type vit C 250 mg-vit E 90 mg-zinc 40 1 tab PO BID 05/26/18 04/24/25 History mg-copper 1 [id number] capsule (PreserVision AREDS-2) aspirin 81 mg tablet,delayed 81 mg PO QAM 09/15/22 04/24/25 History release diphenhydramine 25 1 tab PO HS 04/13/23 04/24/25 History mg-acetaminophen 500 mg tablet (Tylenol PM Extra Strength) venlafaxine 75 mg capsule,extended 75 mg PO DAILY #100 caps 03/27/24 04/24/25 Rx release 24 hr pantoprazole 40 mg tablet,delayed 40 mg PO DAILY #90 tabs 05/17/24 04/24/25 Rx release spironolactone 25 1 tab PO QAM #90 tabs 06/16/24 04/24/25 Rx mg-hydrochlorothiazide 25 mg tablet simvastatin 20 mg tablet 20 mg PO QAM #90 tabs 11/14/24 04/24/25 Rx cholecalciferol (vitamin D3) 25 25 mcg PO QAM 12/12/24 04/24/25 History mcg (1,000 unit) capsule ipratropium bromide 21 mcg (0.03 2 spray intranasal BID #30 mL 12/15/24 04/24/25 Rx %) nasal spray clonidine HCl 0.1 mg tablet 0.1 mg PO QAM 04/24/25 04/24/25 History fluorometholone 0.1 % eye 1 drp OPR QAM 04/24/25 04/24/25 History drops,suspension timolol maleate 0.25 % eye drops 1 drp OPR QAM 04/24/25 04/24/25 History Patient History Medical History Neck pain Fall History of anesthesia reaction AFTER CHOLECYSTECTOMY (2001) THROAT WAS SWOLLEN AND DIFFICULTY TO BREATHE. GERD (gastroesophageal reflux disease) Migraine Hyperlipidemia Surgical History H/O hemorrhoidectomy History of total abdominal hysterectomy and bilateral salpingo-oophorectomy History of colonoscopy History of cholecystectomy History of tooth extraction WISDOM TEETH, MULTIPLE TEETHS H/O bilateral cataract extraction Family History (Updated 04/25/25 @ 11:05 by Carlos Costa MD) Aunt Breast cancer Sister Myocardial infarction Father , age 74 of lung cancer Cancer Heart disease Denies family history of Ovarian cancer Colorectal cancer Social History (Updated 04/25/25 @ 11:06 by Carlos Costa MD) Smoking Status: Never smoker Second Hand Exposure: No; Do You Dip or Chew Tobacco: No; Hx Alcohol Use: Yes Alcohol type: wine and hard liquor Alcohol Intake Frequency: Monthly or Less Hx Substance Use: No Preferred Language: Faroese Communication Ability: Effective Visual Impairment: Limited Hearing Ability: Normal Women'S Activities Adviser Required: No Beliefs That Will Affect Care: None marital status: / Current Living Situation: Alone current occupational status: retired current occupation: Retired aged 51 [employer] How many Children do You have: 2 Feels Safe at Home: Yes Childhood Exposure to Second-Hand Smoke: Yes Diet: regular caffeine: Yes during the past year weight has: remained stable Dental Care, Regularly: Yes Physical Activity Frequency: Does not Exercise Seatbelt Use: never Sunscreen Use: Yes Do you think of yourself as: straight/heterosexual Sexual Activity: has been sexually active, but not for at least 12 months Gender Identity: Female Assistive Devices: Denture - Lower and Glasses Review of Systems Constitutional: no fever, no fatigue and no weakness Eyes: no diplopia, no eye pain and no worsening vision Ear, Nose, Mouth, Throat: no ear pain, no tinnitus, no hearing loss, no dizziness, no snoring, no hoarseness and no dysphagia Respiratory: no cough and no dyspnea Cardiovascular: no chest pain, no palpitations and no lightheadedness Gastrointestinal: no abdominal pain, no nausea and no vomiting Genitourinary: no dysuria, no urinary frequency and no urinary incontinence Musculoskeletal: no back pain, no neck pain, no radicular pain, no joint pain and no myalgia Integumentary: no rash and no lesions Neurologic: no gait abnormality, no localized weakness, no generalized weakness, no tingling, no numbness, no tremor(s), no abnormal movements, no headache(s), no abnormal speech, no confusion and no memory loss Psychiatric: no depression, no irritability, no anxiety, no difficulty concentrating, no confusion and no hallucinations Endocrine: no fatigue and no flushing Hematologic / Lymphatic: no easy bleeding and no easy bruising Allergy / Immunological: no urticaria and no problem reported Exam (Neuro) Physical Exam: The patient is right-handed. The patient is awake, alert, and attentive. Speech is normal without any aphasia or dysarthria. Mentation and thought processes are intact, with full orientation and normal fund of knowledge. Mood and affect are normal and appropriate. Appearance and grooming are normal. Short and long-term memory are intact. Pupils are 4 mm bilaterally and reactive to light. Extraocular eye muscles are intact without nystagmus. Visual acuity and visual webster seem normal grossly to confrontation. There are no deficits to sensation in the face in all 3 distributions of the fifth cranial nerve bilaterally. Corneal reflexes are positive bilaterally. Facial strength and symmetry was normal bilaterally. Hearing seems intact grossly to voice and finger rub bilaterally. Palate moves well without asymmetry. There is normal sternocleidomastoid and trapezius strength bilater ally. Tongue is midline with good strength bilaterally. Neck has a full range of motion without discomfort. There are no cervical bruits bilaterally. There are no cranial or ocular bruits. Heart is without murmur. There is a regular rhythm and rate. Cervical, thoracic, and lumbar spine are nontender to palpation. Gait was not tested but stance sitting up in bed is normal. With outstretched arms there is no drift. There are no resting, postural, or action tremors. There is no ataxia with finger to nose testing. There is good facility in the hands. No other abnormal involuntary movements are noted. Motor strength is 5/5 diffusely in the arms bilaterally including deltoids, biceps, triceps, brachioradialis, wrist flexors and extensors, broom stitcher, and intrinsic hand muscles. Motor strength is 5/5 diffusely in the legs bilaterally including hip flexors, quadriceps, hamstrings, gastrocnemius, tibialis anterior, tibialis posterior, and Peroneii muscles bilaterally. Toe extensors are normal a nd there is good bulk in the extensor digitorum brevis muscles bilaterally. The limbs have good tone without rigidity or spasticity. There is no atrophy noted in the muscles. Muscle bulk is normal, there is no tenderness to palpation, no myotonia to percussion, and no fasciculations seen. Sensory examination is intact to touch and pin throughout all 4 limbs diffusely. Reflexes are 2/4 in the biceps, triceps, brachioradialis, quadriceps, and Achilles tendons bilaterally. Toes are downgoing with plantar stimulation bilaterally. Peripheral pulses are present and of normal quality distally in all 4 limbs. There is no peripheral edema noted in the limbs. Results & Data Vital Signs (Past 12 Hours) Vital Signs Temp Pulse Resp BP Pulse Ox O2 Del Method 04/25/25 10:20 Room Air 04/25/25 02:31 36.5 C 73 18 133/85 94 Room Air PG Care Time/CCT Total # of Minutes Spent Total Time Spent with Patient: Total time spent is greater than 50% in coordination of care (as documented) at patient's floor/unit and/or counseling patient: Coding Level of Care Code 55294 INT INP/OBS CARE MIN Diagnoses TIA (transient ischemic attack) G45.9 Numbness and tingling of left arm and leg R20.0; R20.2
[2025-04-25 11:43] VITALS: BP 120/77; RESP 16; O2SAT 95
[2025-04-25 12:30] VITALS: PULSE 73
[2025-04-25] MEDS: STROKE PATIENT DISCHARGE STA (12:55)
--- NOTE | 2025-04-25 14:00 | XCELERA ---
[id number]
--- NOTE | 2025-04-25 18:15 | Discharge Summary ---
Discharge Summary Date of Service April 25, 2025 Principal Dx & Hospital Course #1 = Principal Diagnosis (1) Stroke-like symptoms: Plan 84 year old female presents to the ER with left sided numbness (face, arm and legs). On admission just having facial numbness. #Stroke-like symptoms,, acute stroke ruled out consider TIA Interestingly she has had intermittent left sided numbness perhaps once a month since the which was put down to possible nerve entrapment but never had MRI confirmation which hasn't changed in severity or frequency during that time. However, these episodes have never effected her face and were not as pronounced as her current episode. She also used to have migraine headaches up until she retired. Possible prior and current episodes are complex migraines without the headache with her current episode worse due to recent head trauma. Treated as TIA/CVA in the ER on advice of telestroke neurology. Given concern for TIA from telestroke and recommendation to add clopidogrel will consult neurology here to clarify complex migraine vs. TIA (she is known to Dr Costa from many years ago). Complete workup without evidence of stroke on MRI abnormalities on echocardiogram. Patient is agreeable to transitioning aspirin to Plavix and simvastatin to atorvastatin. New prescriptions are sent to pharmacy. Total cholesterol is 184 LDL 91 and HDL 64this is on simvastatin Hemoglobin A1c is 6.0 discussed strategies to change diet to reduce glycemic load #Hypertension l continue her usual anti-hypertensives with spironolactone/HCTZ and clonidine. #Insomnia Discussed reducing use of diphenhydramine for "sleep" aid given significant risk factors of fpc use, will continue during her hospitalization #GERD Continue pantoprazole Notes For Next Care Provider Patient was transition atorvastatin watch that her lipids do not go too low we will recommendation follow-up from neurology could be beneficial. Admission HPI Per Admitting Provider Marylu Baron is an 84 year old female presents to the ER with left sided numbness in face, arm and leg. She woke up this morning without any symptoms but started at 8:30am. Over hours the numbness has been improving and she currently only feels numbness in her face. Some reports of her left leg being weak trying to get out of the car but she reports no real weakness it was just her leg felt heavy and odd but she had full power. No vision, speech or hearing changes. No facial droop noticed by her daughter. She has a recent history of head trauma last Wednesday when a 2x4 hit her on the back left of the head. Then on Wednesday she tripped over a cord and hit the front right of her head on the door frame and fell to her knees. She denies any confusion, vision changes, difficulty concentrating or headache from these events. She has a history of intermittent left arm and leg numbness since the which was put down to a trapped nerve although has not become more intense or frequent during that time and no pain or weakness associated with it. These episodes occur approximately once a month. These episodes are not associated with headaches. She also has a history of migraines but these stopped when she retired. Discharge Exam Patient reported at her baseline family in the room we discussed treatment options and changing medication to clear medication side effects. Patient agreeable to changing her medications. Cardiac send regular neurological exam is nonfocal Discharge Plan Discharge Items Patient Disposition: Home - Self-Care Reason For Visit: STROKE LIKE SYMPTOMS Discharge Diagnosis: TIA transient Ischemic attack, all symptoms resolved low magnesium replaced Condition on Discharge: Good Activity: Resume your previous activity Non-emergency contact: Primary Care Provider Call non-emergency contact if: your symptoms worsen Follow-up/Referrals: Kaitlynn Martinez CRNP [Primary Care Provider] - 05/03/25 10:30 am (follow up in one week from discharge Primary care hospital follow up scheduled on 05/03/25 at 10:30 with Kaitlynn Martinez) Diet: Heart Healthy Addtl Attending Provider Instructions: We did discuss some medication changes Aspirin will be replaced with plavix (clopidogrel) once a day Zocor will be replaced by Lipitor( atorvastatin) once a day Risk Factors for Stroke: You can reduce your chances of stroke by working with your medical provider to adopt a healthy lifestyle. Some specific ways to lower your chance of stroke are: * If you are a smoker, now is the time to stop smoking cigarettes * If you are diabetic, improve the control of your blood sugars * Avoid excessive amounts of alcohol * Control high blood pressure * Lose weight if you are overweight * Be sure to lead an active lifestyle * Eat a healthy diet low in salt, cholesterol and fat You should know about other risk factors for stroke that you are unable to control. These include: * Age 55 years or older * Male gender * Certain racial groups: , or / * Family History of Stroke, Mini stroke or Heart Attack * Sickle Cell Disease Follow Up: It is important for you to keep your follow up appointments with your medical provider. Who to Call and When: Medical Emergencies: Call 911 immediately if you experience any of the following warning signs and symptoms of Stroke: * Sudden numbness or weakness of the face, arm or leg, especially on one side of the body * Sudden confusion, trouble speaking or understanding * Sudden trouble seeing in one or both eyes * Sudden trouble walking, dizziness, loss of balance or coordination * Sudden severe headache with no cause Do not delay calling 911 if you experience any warning signs or symptoms of a stroke. Delay in seeking medical attention may affect what treatments can be given to you. . Addtl Boot Trimmer Provider Instructions: You did have a low magnesium, this is usually found in vegetables and fruit in your diet, you may take a supplement but be aware that magnesium supplements can cause diarrhea Pending Studies at Discharge: No Stand-Alone Forms: My [facility] True Fit, Smoking Cessation, Medications to Prevent Stroke Medications and DC Order Prescriptions: New clopidogrel [Plavix] 75 mg tablet 75 mg PO DAILY Qty: 30 5RF atorvastatin 40 mg tablet 40 mg PO DAILY Qty: 30 5RF Continued venlafaxine 75 mg capsule,extended release 24hr 75 mg PO DAILY Qty: 100 3RF pantoprazole 40 mg tablet,delayed release (DR/EC) 40 mg PO DAILY Qty: 90 3RF spironolacton-hydrochlorothiaz 25-25 mg tablet 1 tab PO QAM Qty: 90 3RF ipratropium bromide 21 mcg (0.03 %) spray,non-aerosol 2 spray intranasal BID Qty: 30 3RF Rx Instructions: administer into each nostril diphenhydramine-acetaminophen [Tylenol PM Extra Strength] 25-500 mg tablet 1 tab PO HS Rx Instructions: 1 tab orally Before Bedtime; cholecalciferol (vitamin D3) 25 mcg (1,000 unit) capsule 25 mcg PO QAM PreserVision AREDS-2 [id number] Capsule 1 tab PO BID timolol maleate 0.25 % drops 1 drp OPR QAM fluorometholone 0.1 % drops,suspension 1 drp OPR QAM clonidine HCl 0.1 mg tablet 0.1 mg PO QAM Discontinued simvastatin 20 mg tablet 20 mg PO QAM Qty: 90 3RF aspirin [Aspirin Low-Strength] 81 mg Tablet,Delayed Release (Dr/Ec) 81 mg PO QAM Discharge Orders: Discharge Order (Routine); Ordered 04/25/25 Ordered By: Prabhjot Estrada/Other Patient Handouts: Prediabetes, 5 Steps for Eating Healthier Admission Data Admit Date/Time: 04/24/25 12:03 Attending Provider: Prabhjot Coto Admit Provider: Francis Love Primary Care Provider: Kaitlynn Martinez Other Providers: Francis Love; Carlos Costa Other Interventions: Discharge Summary Assessment (RN) Last Done: 04/25/25 12:26 Hospital Stay Data Consultations 04/24/25 11:20 ED Decision to Admit Stat 04/24/25 18:17 Consult Neurology Routine Diagnostic Imagining Performed 04/24/25 10:06 CT head/brain wo con Stat 04/24/25 10:08 CT angio head w con Stat CT angio neck with con Stat 04/25/25 07:00 MRI Brain [MR brain wo con] Urgent Pending Results Patient Have Any Pending Studies at Discharge: No Discharge Instructions Given to Patient (Per Discharging Provider) We did discuss some medication changes Aspirin will be replaced with plavix (clopidogrel) once a day Zocor will be replaced by Lipitor( atorvastatin) once a day Risk Factors for Stroke: You can reduce your chances of stroke by working with your medical provider to adopt a healthy lifestyle. Some specific ways to lower your chance of stroke are: * If you are a smoker, now is the time to stop smoking cigarettes * If you are diabetic, improve the control of your blood sugars * Avoid excessive amounts of alcohol * Control high blood pressure * Lose weight if you are overweight * Be sure to lead an active lifestyle * Eat a healthy diet low in salt, cholesterol and fat You should know about other risk factors for stroke that you are unable to control. These include: * Age 55 years or older * Male gender * Certain racial groups: , or / * Family History of Stroke, Mini stroke or Heart Attack * Sickle Cell Disease Follow Up: It is important for you to keep your follow up appointments with your medical provider. Who to Call and When: Medical Emergencies: Call 911 immediately if you experience any of the following warning signs and symptoms of Stroke: * Sudden numbness or weakness of the face, arm or leg, especially on one side of the body * Sudden confusion, trouble speaking or understanding * Sudden trouble seeing in one or both eyes * Sudden trouble walking, dizziness, loss of balance or coordination * Sudden severe headache with no cause Do not delay calling 911 if you experience any warning signs or symptoms of a stroke. Delay in seeking medical attention may affect what treatments can be given to you. . Total Time Total Time Spent Total Time Spent (In Minutes): It required greater than 30 minutes to prepare this patient for discharge. Coding Level of Care Code 17947 INP/OBS DISCH >30 MIN Diagnoses Stroke-like symptoms R29.90
== END 2025-04-25 12:55 | disposition home or self-care (01) ==
LOC: EDINP 09:47 → ED 09:47 → SUATTDRO 12:03 → 2S 14:28